=== PATIENT | female | born 1965 | race Caucasian/White ===

== ENCOUNTER → 2017-03-24 | Outpatient (CLI) | payer SELFPAY ==
[2017-03-24 15:12] LABS: ABSOLUTE BASOPHILS # (AUTO) 0.1 10^3/uL (0.0-0.2); ABSOLUTE EOSINOPHILS # (AUTO) 0.1 10^3/uL (0.0-0.6); ABSOLUTE LYMPHOCYTES (AUTO) 1.6 10^3/uL (0.5-4.7); ABSOLUTE MONOCYTES (AUTO) 0.4 10^3/uL (0.1-1.4); ABSOLUTE NEUT (AUTO) 2.5 10^3/uL (1.7-8.2); BASOPHILS % (AUTO) 1.1 % (0-2); EOSINOPHILS % (AUTO) 1.8 % (0-6); HEMATOCRIT 38.1 % (36.0-47.0); HEMOGLOBIN 12.9 g/dL (12.0-15.5); HGB HCT DIFFERENCE 0.6; LYMPHOCYTES % (AUTO) 34.5 % (13-45); MEAN CORPUSCULAR HEMOGLOBIN 30.2 pg (27.0-33.4); MEAN CORPUSCULAR HGB CONC 33.9 g/dL (32.0-36.0); MEAN CORPUSCULAR VOLUME 89 fl (80-97); MONOCYTES % (AUTO) 8.5 % (3-13); RED BLOOD COUNT 4.29 10^6/uL (3.72-5.28); RED CELL DISTRIBUTION WIDTH 14.2 % (11.5-14.0); SEGMENTED NEUTROPHILS % (AUTO) 54.1 % (42-78); WHITE BLOOD COUNT 4.7 10^3/uL (4.0-10.5)
[2017-03-24 15:34] LABS: ALANINE AMINOTRANSFERASE 29 U/L (9-52); ALBUMIN 4.1 g/dL (3.5-5.0); ALKALINE PHOSPHATASE 98 U/L (38-126); ANION GAP 10 (5-19); ASPARTATE AMINO TRANSFERASE 17 U/L (14-36); BILIRUBIN,DIRECT 0.3 mg/dL (0.0-0.4); BILIRUBIN,TOTAL 0.4 mg/dL (0.2-1.3); BLOOD UREA NITROGEN 12 mg/dL (7-20); CALCIUM 9.9 mg/dL (8.4-10.2); CARBON DIOXIDE 29 mmol/L (22-30); CHLORIDE 103 mmol/L (98-107); CREATININE RESULT 0.83 mg/dL (0.52-1.25); GLUCOSE 80 mg/dL (75-110); POTASSIUM 4.2 mmol/L (3.6-5.0); SODIUM 141.7 mmol/L (137-145); TOTAL PROTEIN 6.9 g/dL (6.3-8.2)
[2017-03-24 15:38] LABS: C-REACTIVE PROTEIN < 5.0 mg/L (<10.0)
[2017-03-24 15:49] LABS: ERYTHROCYTE SEDIMENTATION RATE 13 mm/hr (0-30)
[2017-03-29 11:38] LABS: QUANTIFERON TB ANTIGEN VALUE 0.04 IU/mL (.); QUANTIFERON TB NIL VALUE 0.03 IU/mL (.)
== END ==
LOC: LAB 14:25
PROVIDERS: ATTEND Internal Medicine Rheumatology
DX: M15.0 Primary generalized (osteo)arthritis (principal); M05.79 Rheumatoid arthritis with rheumatoid factor of multiple sites without organ or systems involvement; G89.4 Chronic pain syndrome; I25.10 Atherosclerotic heart disease of native coronary artery without angina pectoris; I10 Essential (primary) hypertension
CPT/HCPCS: 36415; 80053; 85025; 85652; 86140; 86480; 87340

== ENCOUNTER 2018-01-22 22:20 | Emergency (ER) | payer BC ==
--- NOTE | 2018-01-22 23:28 | ER Document Report ---
ED Medical Screen (RME) - General Chief Complaint: Sore Throat Stated Complaint: ALLERGIC REACTION Time Seen by Provider: 01/22/18 23:26 Mode of Arrival: Ambulatory Information source: Patient TRAVEL OUTSIDE OF THE [place] IN LAST 30 DAYS: No - HPI Patient complains to provider of: sore throat Notes: 01/22/18 23:26 Patient is here with complaints of sore throat. She states that she woke up this morning with a sore throat. Occasionally she feels like her throat is swelling and she has had no difficulty breathing or swelling. She does have a history of asthma and states that she has been on prednisone for the last few days due to his recent asthma exacerbation. She denies fever. No nausea vomiting. Physical exam: Lungs are clear. Patient is in no distress. No stridor. Airway is patent. Mild erythema with some palatal erythema and mild exudate noted. Uvula is midline. No peritonsillar abscess. No trismus or drooling. An initial examination was made on the patient as part of the triage process, and it was determined a more comprehensive evaluation was necessary. Initial labs were ordered and patient was transferred to another provider in the ED who assumed care and finished evaluation and plan. - Related Data Allergies/Adverse Reactions: adhesive [Adhesive] Allergy (Verified 05/09/13 13:42) Calcium Channel Blocking Agent Dilt [Calcium Channel Blocking Agents-Ger] Allergy (Verified 05/09/13 13:42) NSAIDS (Non-Steroidal Anti-Inflamma [Nsaids] Allergy (Verified 05/09/13 13:42) Past Medical History - Past Medical History Cardiac Medical History: Reports: Hx Hypertension Pulmonary Medical History: Reports: Hx Asthma Musculoskeltal Medical History: Reports Hx Arthritis - RA Past Surgical History: Reports: Hx Cholecystectomy Physical Exam - Vital signs Vitals: Temp Pulse Resp BP Pulse Ox 97.9 F 71 18 142/87 H 97 01/22/18 22:31 01/22/18 22:31 01/22/18 22:31 01/22/18 22:31 01/22/18 22:31 Course - Vital Signs Vital signs: Temp Pulse Resp BP Pulse Ox 97.9 F 71 18 142/87 H 97 01/22/18 22:31 01/22/18 22:31 01/22/18 22:31 01/22/18 22:31 01/22/18 22:31
[2018-01-23] MEDS ORDERED: NYSTATIN 500000 UNIT/5 ML UDCUP PO ONE (01:39)
[2018-01-23] MEDS ORDERED: FLUCONAZOLE 100 MG TABLET PO ONE (01:39)
--- NOTE | 2018-01-23 01:42 | ER Document Report ---
ED Oral Problem - General Chief Complaint: Sore Throat Stated Complaint: ALLERGIC REACTION Time Seen by Provider: 01/22/18 23:26 Mode of Arrival: Ambulatory Notes: Patient is a 52-year-old female, past medical history asthma, presents with sore throat and white lesions in the roof of her mouth. She has taken intermittent prednisone she has wheezing uses her albuterol. She denies any shortness of breath or wheezing at this time. Denies difficulty swallowing, neck stiffness, enlarged lymph nodes, cough, nausea, vomiting or fevers. TRAVEL OUTSIDE OF THE [place] IN LAST 30 DAYS: No - Related Data Allergies/Adverse Reactions: adhesive [Adhesive] Allergy (Verified 01/22/18 23:28) Calcium Channel Blocking Agent Dilt [Calcium Channel Blocking Agents-Ger] Allergy (Verified 01/22/18 23:28) NSAIDS (Non-Steroidal Anti-Inflamma [Nsaids] Allergy (Verified 01/22/18 23:28) Past Medical History - General Information source: Patient - Social History Smoking Status: Never Smoker Chew tobacco use (# tins/day): No Frequency of alcohol use: None Drug Abuse: None Family History: Reviewed & Not Pertinent Patient has suicidal ideation: No Patient has homicidal ideation: No - Past Medical History Cardiac Medical History: Reports: Hx Hypertension Pulmonary Medical History: Reports: Hx Asthma Renal/ Medical History: Denies: Hx Peritoneal Dialysis Musculoskeltal Medical History: Reports Hx Arthritis - RA Past Surgical History: Reports: Hx Cholecystectomy Review of Systems - Review of Systems Notes: REVIEW OF SYSTEMS: CONSTITUTIONAL: -fevers, -chills EENT: -eye pain, -difficulty swallowing, -nasal congestion, +sore throat CARDIOVASCULAR: -chest pain, -syncope. RESPIRATORY: -cough, -SOB GASTROINTESTINAL: -abdominal pain, -nausea, -vomiting, -diarrhea GENITOURINARY: -dysuria, -hematuria MUSCULOSKELETAL: -back pain, -neck pain SKIN: -rash or skin lesions. HEMATOLOGIC: -easy bruising or bleeding. LYMPHATIC: -swollen, enlarged glands. NEUROLOGICAL: -altered mental status or loss of consciousness, -headache, - neurologic symptoms PSYCHIATRIC: -anxiety, -depression. ALL OTHER SYSTEMS REVIEWED AND NEGATIVE. Physical Exam - Vital signs Vitals: Temp Pulse Resp BP Pulse Ox 97.9 F 71 18 142/87 H 97 01/22/18 22:31 01/22/18 22:31 01/22/18 22:31 01/22/18 22:31 01/22/18 22:31 - Notes Notes: PHYSICAL EXAMINATION: GENERAL: Well-appearing, well-nourished and in no acute distress. HEAD: Atraumatic, normocephalic. EYES: Pupils equal round and reactive to light, extraocular movements intact, sclera anicteric, conjunctiva are normal. ENT: whitish lesions on roof of mouth and around tonsils, no tonsillar swelling or hypertrophy. Nares patent, Moist mucous membranes. No tongue or lip swelling. NECK: Normal range of motion, supple without lymphadenopathy LUNGS: Breath sounds clear to auscultation bilaterally and equal. No wheezes rales or rhonchi. HEART: Regular rate and rhythm without murmurs ABDOMEN: Soft, nontender, normoactive bowel sounds. No guarding, no rebound. No masses appreciated. EXTREMITIES: Normal range of motion, no pitting or edema. No cyanosis. NEUROLOGICAL: Cranial nerves grossly intact. Normal speech, normal gait. Normal sensory and motor exams. PSYCH: Normal mood, normal affect. SKIN: Warm, Dry, normal turgor, no rashes or lesions noted. Course - Re-evaluation Re-evalutation: Patient strep is negative. She is in no respiratory distress and has no signs of anaphylaxis or airway compromise. With her recent steroid use and whitish lesions in her mouth, will treat her for oral Zuly with Diflucan and nystatin rinses. Asked her to follow-up with her primary care physician. Given strict return precautions and she understands. - Vital Signs Vital signs: Temp Pulse Resp BP Pulse Ox 97.5 F 66 16 154/95 H 98 01/23/18 02:03 01/23/18 02:03 01/23/18 02:03 01/23/18 02:03 01/23/18 02:03 Discharge - Discharge Clinical Impression: Sore throat, Zuly infection, oral Condition: Stable Disposition: HOME, SELF-CARE Additional Instructions: SORE THROAT: Sore throats may be caused by viruses, bacteria, or fungi. Most are due to a virus, and must get better on their own. Bacterial sore throats, particularly those due to "strep," need treatment with antibiotics. If an antibiotic is prescribed, be sure to take the medication for a full 10 days. Failure to take the antibiotic can result in complications such as rheumatic fever. Sometimes, an injection of antibiotics is given instead of pills or liquid. This single "shot" is equal in effectiveness to the oral medication. To relieve symptoms, take acetaminophen for pain. Sip clear liquids frequently, or eat popsicles or ice chips. Anesthetic sprays or lozenges may help. Make sure the air in the room is not too dry. Avoid using decongestants or antihistamines. Call the doctor if there is no improvement in two days, or if you have difficulty breathing, increasing throat pain, high fever, rash, or frequent vomiting. FOLLOW-UP CARE: If you have been referred to a physician for follow-up care, call the physician s office for an appointment as you were instructed or within the next two days. If you experience worsening or a significant change in your symptoms, notify the physician immediately or return to the Emergency Department at any time for re-evaluation. Prescriptions: Nystatin [Mycostatin 500,000 Unit/5 ml Susp Udcup] 500,000 unit PO QID #20 udc Forms: Elevated Blood Pressure Referrals: [facility] [Outside] - Follow up as needed
[2018-01-23 02:04] VITALS: BP 154/95
== END 2018-01-23 02:01 | disposition home or self-care (01) ==
LOC: ER 22:20
DX: J02.9 Acute pharyngitis, unspecified (principal); B37.0 Candidal stomatitis
CPT/HCPCS: 87070; 87880; 99283

== ENCOUNTER → 2018-06-22 | Outpatient (CLI) | payer BC ==
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
--- NOTE | 2018-06-22 15:48 | RADIOLOGY REPORT (SQ) ---
EXAM DESCRIPTION: CAROTID DOPPLER COMPLETED DATE/TIME: 06/22/2018 3:30 pm REASON FOR STUDY: DIZZINESS AND GIDDINESS I63.9 CEREBRAL INFARCTION, UNSPECIFIED R42 DIZZINESS AND GIDDINESS COMPARISON: None. TECHNIQUE: Grayscale ultrasound, Doppler velocity and spectra, and color Doppler images acquired of the extra-cranial carotid and vertebral arteries. Images stored on PACS. LIMITATIONS: None. FINDINGS: RIGHT CAROTID CCA Velocities: Within normal limits. ICA Velocities Peak systolic 0.54 m/s. End diastolic 0.20 m/s. Proximal ICA/CCA peak systolic ratio 0.6. Spectra normal. No significant plaque. LEFT CAROTID CCA Velocities: Within normal limits. ICA Velocities Peak systolic 0.94 m/s. End diastolic 0.32 m/s. Proximal ICA/CCA peak systolic ratio 1.3. Spectra normal. No significant plaque. VERTEBRAL ARTERIES: Antegrade flow. Normal waveforms. SUBCLAVIAN ARTERIES: No finding. OTHER: No other significant finding. IMPRESSION: NO HEMODYNAMICALLY SIGNIFICANT STENOSIS. COMMENT: Quality ID #[id number]: Velocity criteria are extrapolated from the diameter data as defined by t he Society of Radiologists in Ultrasound Consensus Conference. Radiology 2003: 229; 340-346. TECHNICAL DOCUMENTATION: JOB ID: [id number] [employer]- All Rights Reserved Reading location - IP/workstation name: [email or web address]
== END ==
LOC: RAD 13:20
PROVIDERS: ATTEND Student in an Organized Health Care Education/Training Program
DX: I63.9 Cerebral infarction, unspecified (principal); R42 Dizziness and giddiness
CPT/HCPCS: 70551; 93880

== ENCOUNTER 2019-05-19 13:19 | Emergency (ER) | payer OTHER, BC ==
[2019-05-19] MEDS ORDERED: ACETAMINOPHEN 325 MG TABLET PO ONE (14:51)
[2019-05-19] MEDS ORDERED: HYDROCODONE/ACETAMINOPHEN 5-325 MG (6 TAB/ER DISP) PO PRN (14:52)
[2019-05-19] MEDS ORDERED: HYDROCODONE/ACETAMINOPHEN 5-325 MG TABLET PO ONE ×2 (14:52→15:20)
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
[2019-05-19 16:56] VITALS: BP 150/80
== END 2019-05-19 16:35 | disposition home or self-care (01) ==
LOC: ER 13:19
DX: S16.1XXA Strain of muscle, fascia and tendon at neck level, initial encounter (principal); R10.9 Unspecified abdominal pain; M54.2 Cervicalgia; M79.18 Myalgia, other site; V49.40XA Driver injured in collision with unspecified motor vehicles in traffic accident, initial encounter; I10 Essential (primary) hypertension; J45.909 Unspecified asthma, uncomplicated
CPT/HCPCS: 99283